=== PATIENT | male | born 1960 | race Caucasian/White ===

== ENCOUNTER → 2022-09-23 13:36 | Outpatient (BNVA) | payer OTHER, SELFPAY | PROVIDERS: Visit Provider Internal Medicine Cardiovascular Disease | DX: I20.8 Other forms of angina pectoris (principal) | CPT/HCPCS: 93005 ==

== ENCOUNTER → 2022-09-24 09:16 | Outpatient (REF) | payer OTHER, SELFPAY ==
--- NOTE | 2022-09-24 07:57 | CA_ITS ---
Acquisition Time: 2022-09-24 08:01:00 Total Exercise Time: 00:04:52 Test Indications: Suspected Angina Medications: ASA ATORVASTATIN FENOFIBRATE METOPROLOL Protocol: BANDAR Max HR: 103 BPM 65% of Pred: 158 BPM Max BP: 172/060 mmHG Max Work Load: 6.8 METS Exercise stress test exercise 4 min 52 sec of Bandar protocol achieving 65% MPHR, with 7/10 chest burning, isolated PACs and PVCs, with normotensive response to exercise, with EKG changes meeting criteria for ischemia inferiorly. His chest burning and EKG changes resolved quickly in recovery. Test reviewed with Dr Harden. Plan for cardiac catherization as soon as can be scheduled. Pt informed. Risks reviewed. Instructed on light physical activity only. No work. Continue current meds which include aspirin, atorvastatin and metoprolol. Precath labs ordered on him. Allowed to leave stress lab pain free and in stable condition. Referred By: Francois Harden Overread By: KAUSHAL SANTOS
[2022-09-24 09:04] LABS: Basophils Percent Auto 0.3 % (0-2); Eosinophils Percent Auto 0.2 % (0-4); Hematocrit 39.8 % (42.0-52.0); Hemoglobin 12.4 g/dl (14.0-18.0); Imm Gran Abs Auto 0.03 X10*3/uL (0.00-0.03); Imm Gran Pct Auto 0.2 % (0.0-0.4); Lymphocytes Absolute Auto 5.8 X10*3/uL (1.2-4.9); Lymphocytes Percent Auto 42.6 % (20-40); MANUAL DIFF FLAG SCAN; Mean Corpuscular HGB Conc 31.2 g/dl (31.0-36.0); Mean Corpuscular Hemoglobin 21.7 pg (27.0-33.0); Mean Corpuscular Volume 69.6 fL (80.0-98.0); Mean Platelet Volume 9.9 fL (9.4-12.4); Monocytes Absolute Auto 0.5 X10*3/uL (0.1-1.2); Monocytes Percent Auto 3.8 % (2-11); Neutrophils Absolute Auto 7.2 x10*3/uL (2.0-8.3); Neutrophils Percent Auto 52.9 % (45-73); Platelet Count 369 X10*3/uL (160-400); Red Blood Count 5.72 X10*6/uL (4.60-5.80); Red Cell Distribution Width 14.6 % (11.0-16.0); SCAN SMEAR FLAG 1; White Blood Count 13.7 X10*3/uL (4.8-10.8)
[2022-09-24 09:08] LABS: Prothrombin Time 11.5 SEC (10.0-13.1)
[2022-09-24 09:40] LABS: SLIDE REVIEW VERIFIED
[2022-09-24 09:47] LABS: Anion Gap 13 (12-20); Blood Urea Nitrogen 12 mg/dL (9-16); Calcium 9.9 mg/dL (8.4-10.2); Carbon Dioxide 26 mmol/L (22-29); Chloride 106 mmol/L (96-108); Estimated Glomerular Filt Rate > 60; Glucose Random 130 mg/dL (60-115); Potassium 4.3 mmol/L (3.3-5.1); Sodium 141 mmol/L (135-145)
== END ==
LOC: HO.CARD 09:16
PROVIDERS: Nurse Practitioner Family; PCP Internal Medicine; Visit Provider Internal Medicine Cardiovascular Disease
DX: Z01.810 Encounter for preprocedural cardiovascular examination (principal); I20.8 Other forms of angina pectoris; R94.39 Abnormal result of other cardiovascular function study
CPT/HCPCS: 36415; 80048; 85025; 85610; 93017

== ENCOUNTER → 2022-09-28 23:59 | Outpatient (BNV) | payer OTHER, SELFPAY | PROVIDERS: PCP Internal Medicine; Visit Provider Internal Medicine Cardiovascular Disease | DX: R93.1 Abnormal findings on diagnostic imaging of heart and coronary circulation (principal); I20.8 Other forms of angina pectoris | CPT/HCPCS: 93458; 99152 ==

== ENCOUNTER → 2022-11-03 09:52 | Outpatient (REF) | payer OTHER, SELFPAY ==
--- NOTE | 2022-11-03 10:01 | CA_ITS ---
Transthoracic Echocardiogram Patient (Last, First, Middle): Albert Tomlin, Gender: Male Date of : 1960 Age: 61 Procedure Date: 11/03/2022 Procedure Type: Transthoracic Echocardiogram Location: OP Height: 180.34 cm Weight: 85.28 kg BSA: 2.05 m2 Heart Rate: bpm BP: 130 / 76 mmHg Chief Medical Director: TO Referring MD: Francois Harden MD Symptoms: I20.8 - Other forms of angina pectoris Study Quality: Fair/contrast ECG Rhythm: Sinus Conclusions: - The left ventricular systolic function is normal. The visually estimated ejection fraction is between 65-70%. - No obvious valvular pathology seen on this study. - Small pericardial effusion posterior left ventricle. Over the right atrium, moderate in size. Findings Procedure Information Contrast agent, definity, is being given per protocol without apparent complications. Left Ventricle Normal left ventricular cavity size. There is normal left ventricular wall thickness. The left ventricular systolic function is normal. The visually estimated ejection fraction is between 65-70%. There is no evidence of regional wall motion abnormalities. Diastolic function is normal for age. Right Ventricle Mildly increased right ventricular cavity size. There is normal right ventricular systolic function. Aortic Valve There is a normal trileaflet aortic valve. There is no aortic valve stenosis. There is no aortic valve regurgitation. Mitral Valve The mitral valve appears normal. There is trace mitral valve regurgitation. There is no mitral valve stenosis. Pulmonic Valve There is trace to mild pulmonic valve regurgitation. Tricuspid Valve Normal tricuspid valve structure. There is trace tricuspid valve regurgitation. There is no evidence of pulmonary hypertension. Great Vessels The asc aorta is normal in size. Venous The inferior vena cava is normal in size and collapses greater than 50% with inspiration. Pericardium/Pleural There are no definitive echocardiographic findings of tamponade physiology. Small pericardial effusion posterior left ventricle. Over the right atrium, moderate in size. Prior Study Comparison No prior study available for comparison. Recommendations, Care & Conclusions No obvious valvular pathology seen on this study. Measurements 2D Linear Measurements IVSd: 0.97 0.6-0.9/0.6-1.0 cm LVIDd: 5.40 3.9-5.3/4.2-5.9 cm LVIDd Index: 2.63 2.4-3.2/2.2-3.1 cm/m2 LVIDs: 3.25 2.0-3.6 cm LVPWd: 0.81 0.7-1.1 cm LA Diam: 4.10 2.7-3.8/3.0-4.0 cm LAIDs Index: 2.00 1.5-2.3 cm/m2 LV Mass: 221.03 67-162/88-224 g LV Mass Index: 107.82 43-95/49-115 g/m2 LVOT Diam: 2.60 3.0+(-)1.3 cm 2D Systolic Function EF 4C: 59.20 >55% EF 2C: 65.60 >55% EF BiP: 62.50 >55% Mitral Valve MV Pk E: 0.91 MV PK A: 0.35 MV Decel Time: 274.00 E/A: 2.60 E'Lateral: 14.80 E'Medial: 9.36 E/E' Med: 9.70 E/E' Lat: 6.10 PHT: 80.00 MVA PHT: 2.75 Decel [place]: 3.31 Aortic Valve AoV Pk [place]: 1.38 AoV Mn [place]: 0.84 AoV VTI: 0.29 AoV Pk Grad: 8.00 Aov Mn Grad: 3.00 MARCIA Cont.VTI: 5.44 LVOT LVOT Pk [place]: 1.36 LVOT Mn [place]: 0.81 LVOT VTI: 0.29 LVOT Pk Grad: 7.00 LVOT Mn Grad: 3.00 LVOT Diam: 2.60 LVOT Area: 5.31 Diastolic Function MV Pk E: 0.91 MV Pk A: 0.35 E/A: 2.60 E'Medial: 9.36 E/E' Med: 9.70 E' Laterial: 14.80 E/E' Lat: 6.10 Right Ventricle TAPSE (mm): 16.80 TVS' [place]: 13.40 Tricuspid Valve TR Pk [place]: 2.20 TR Pk Grad: 19.00 RA Press: 3.00 RVSP: 22.00 Great Vessels Aorta Ao Asc: 3.70 2.1-3.4 cm Updated in Other Vendor System with Status of Final Matthew Ordonez MD electronically signed on 11/04/2022 11:40:31 AM with status of Final
== END ==
LOC: HO.CARD 09:52
PROVIDERS: Visit Provider Internal Medicine Cardiovascular Disease
DX: I20.8 Other forms of angina pectoris (principal)
CPT/HCPCS: 93306; Q9957

== ENCOUNTER → 2022-11-03 10:01 | Outpatient (BNV) | payer OTHER, SELFPAY | PROVIDERS: Visit Provider Internal Medicine | DX: I31.39 Other pericardial effusion (noninflammatory) (principal) | CPT/HCPCS: 93306 ==

== ENCOUNTER → 2022-11-06 11:11 | Outpatient (REF) | payer OTHER, SELFPAY ==
--- NOTE | 2022-11-06 11:23 | HM_ITS ---
Conclusion: 1. Patient was monitored for total period of 2 days and 21 hours 2. Baseline was normal sinus rhythm with average heart of 61 beats per minute 3. No significant pauses noted 4. No atrial fibrillation noted 5. Rare PACs noted 6. No patient reported events MTDD
== END ==
LOC: HO.CARD 11:11
PROVIDERS: Visit Provider Internal Medicine Cardiovascular Disease
DX: I20.8 Other forms of angina pectoris (principal)
CPT/HCPCS: 93242

== ENCOUNTER → 2022-11-06 11:23 | Outpatient (BNV) | payer OTHER, SELFPAY | PROVIDERS: Visit Provider Internal Medicine Cardiovascular Disease | DX: I49.1 Atrial premature depolarization (principal) | CPT/HCPCS: 93244 ==

== ENCOUNTER 2022-11-16 13:43 | Outpatient (AMB) | payer OTHER, SELFPAY ==
[2022-11-16 13:59] VITALS: BP 130/72; PULSE 60; O2SAT 98; BMI 26.4
--- NOTE | 2022-11-16 13:59 | MHC.OFFVIS ---
Intake Vital Signs 11/16/22 13:59 Height 6 ft Weight 194 lb 14.218 oz BMI 26.4 BP 130/72 Blood Pressure Location Lt brachial Position Sitting Pulse 60 Pulse Source Pulse Oximeter Pulse Oximetry (%) 98 Oxygen Delivery Method Room Air Intake Visit Reasons: Follow up Allergies No Known Allergies Allergy (Verified 11/16/22 14:02) Medication List - Last Reconciled 11/16/22 by Rebeka Tse, AIR CONDITIONING SERVICE TECHNICIAN-C amiodarone 200 mg PO DAILY aspirin 81 mg PO BEDTIME atorvastatin 80 mg PO DAILY clopidogrel 75 mg PO DAILY fenofibrate 160 mg PO DAILY metoprolol succinate ER 25 mg PO QAM 30 days pantoprazole 40 mg PO DAILY HPI Follow up HPI Details Albert is a 62-year-old male with past medical history of hyperlipidemia, elevated calcium score, angina who underwent further cardiac testing and found to have significant coronary artery disease leading to 3 vessel coronary artery bypass grafting. He now presents for follow-up. Today he reports he has been doing very well since his hospital discharge. He tells me he has been back to work for a few weeks. 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 He does not do any heavy lifting. No chest discomfort or chest wall soreness reported. No shortness of breath, palpitations, dizziness, presyncope, syncope, PND, orthopnea or edema. He is not interested in cardiac rehab. [facility] Surgical History (Updated 11/16/22 @ 16:20 by Rebeka Tse, AIR CONDITIONING SERVICE TECHNICIAN-C) Hx of knee surgery S/P CABG x 3 S/P cardiac catheterization Family History Father CAD (coronary artery disease) Mother No problems noted. Sister CAD (coronary artery disease) Review of Systems Const All systems reviewed & are unremarkable except as noted in HPI and below Card Reports no additional complaints Resp Reports no additional complaints Physical Exam Vital Signs: Last Vital Signs Pulse 60 11/16/22 13:59 BP 130/72 11/16/22 13:59 Pulse Ox 98 11/16/22 13:59 Oxygen Delivery Method Room Air 11/16/22 13:59 BMI result Body Mass Index 26.4 Const General: cooperative, healthy appearing, comfortable and no acute distress Orientation/consciousness: patient oriented x3 Neck Neck: Yes normal visual inspection Chest Other: Sternal incision fully intact, drain sites well healed, no signs of infection, nontender anterior chest wall Resp Effort & Inspection: normal respiratory effort Auscultation: clear to auscultation bilaterally, no crackles, no rales, no rhonchi and no wheezes Cardio Jugular venous distension: no JVD Rate: regular rate Rhythm: regular rhythm Heart sounds: S1 normal heart sound present, S2 normal heart sound present, no murmurs and no rubs Neuro General: patient oriented x3 Extrem General: Yes normal to inspection and No no pedal edema Psych Appearance: grossly normal Mental Status: mental status grossly normal Speech and movement: Normal speech and movement present Office Procedures EKG Details: Today, read by me, sinus bradycardia, possible left atrial enlargement, T-wave inversion V2 through V4, different from last EKG at [facility], rate 58, QTC 455 milliseconds [id number], Complete Assessment & Plan Assessment & Plan (1) CAD (coronary artery disease): Code(s): I25.10 - Atherosclerotic heart disease of [place] coronary artery without angina pectoris Plan: Cardiology consult last visit in August for elevated calcium score predominantly in the LAD territory. Known history of hyperlipidemia. At that time he reported atypical anginal symptoms. He then underwent a exercise stress test on 09/24/2022 with exercise just under 5 minutes reaching 65% mph are with need to stop due to 710 anterior chest burning with positive EKG changes. He was scheduled for a cardiac catheterization done on 09/28/2022 showing left main 80% stenosis, proximal LAD 99% stenosis, left circumflex 40% stenosis, distal RCA 70% stenosis. He was kept inpatient for a coronary artery bypass grafting done on 09/30/2022 with HERMAN to LAD, right radial graft to OM and SVG to PDA. There is documentation of AFib RVR in his postop period. He was put on amiodarone for 3 weeks which he has since completed. He is not on anticoagulation with the exception of aspirin and clopidogrel. He continues on high-dose atorvastatin and metoprolol. Today he states he is feeling very well with no concerning symptoms. He has been back to work for 2-3 weeks. He denies any heavy lifting and doing only light physical activities. Instructed on no heavy lifting greater than 20 lb for an additional 6 weeks and echocardiogram was done on 11/03/2022 showing EF 65-70%, no regional wall motion abnormalities, small pericardial effusion. EKG done today showing T-wave inversions V2 through V4 which appear different than EKG done postoperatively at [facility]. Reviewed with Dr. Harden. Will have him start in cardiac rehab. He initially states he does not want cardiac rehab however with EKG abnormality he is willing to attend. He tells me he already has an order and is going to attend at a place closer to his home. Signs and symptoms of angina reviewed. Cardiology office visit in 2-3 months, sooner if needed. (2) S/P cardiac catheterization: Comment: 09/28/2022, left main 80% stenosis, proximal LAD 99% stenosis, left circumflex 40% stenosis, distal RCA 70% stenosis Code(s): Z98.890 - Other specified postprocedural states (3) S/P CABG x 3: Comment: 04/02/2022, herman to LAD, right radial artery to OM, SVG to PDA Code(s): Z95.1 - Presence of aortocoronary bypass graft (4) Hyperlipidemia: Code(s): E78.5 - Hyperlipidemia, unspecified Plan: [place] LDL goal less than 70. Continue high-dose atorvastatin. Plan for fasting lipids at time of next visit. (5) Abnormal EKG: Code(s): R94.31 - Abnormal electrocardiogram [ECG] [EKG] Plan: T-wave inversions noted on EKG today. Asymptomatic Coding Level of Care Code Est Pt Level 4 (61732) Diagnoses CAD (coronary artery disease) I25.10 S/P cardiac catheterization Z98.890 S/P CABG x 3 Z95.1 Hyperlipidemia E78.5 Abnormal EKG R94.31 CPT Codes EKG - CPT: 66468-[id number], Complete ([id number]) Time Spent (min) 28 Comment Chart review, documentation, interview, assess
== END 2022-11-16 14:52 | disposition home or self-care (01) ==
PROVIDERS: PCP Internal Medicine; Referring Provider Internal Medicine; Visit Provider Nurse Practitioner Family
DX: I25.10 Atherosclerotic heart disease of native coronary artery without angina pectoris (principal); Z98.890 Other specified postprocedural states; Z95.1 Presence of aortocoronary bypass graft; E78.5 Hyperlipidemia, unspecified; R94.31 Abnormal electrocardiogram [ECG] [EKG]
CPT/HCPCS: 93010; 99214

== ENCOUNTER → 2022-11-16 13:43 | Outpatient (BNVA) | payer OTHER, SELFPAY | PROVIDERS: PCP Internal Medicine; Referring Provider Internal Medicine; Visit Provider Nurse Practitioner Family | DX: I25.10 Atherosclerotic heart disease of native coronary artery without angina pectoris (principal); R94.31 Abnormal electrocardiogram [ECG] [EKG]; E78.5 Hyperlipidemia, unspecified; Z79.899 Other long term (current) drug therapy; Z95.1 Presence of aortocoronary bypass graft | CPT/HCPCS: 93005 ==

== ENCOUNTER 2023-01-26 14:52 | Outpatient (AMB) | payer OTHER, SELFPAY ==
[2023-01-26 14:55] VITALS: BP 130/82; PULSE 72; O2SAT 96; BMI 27.3
--- NOTE | 2023-01-26 14:55 | MHC.OFFVIS ---
Intake Vital Signs 01/26/23 14:55 Height 6 ft Weight 201 lb 0.985 oz BMI 27.3 BP 130/82 Blood Pressure Location Lt brachial Position Sitting Pulse 72 Pulse Source Pulse Oximeter Pulse Oximetry (%) 96 Oxygen Delivery Method Room Air Intake Visit Reasons: 3 mth f/up Intake Note: Pt presents to the office today for a 3 month follow up. Pt states he is overall feeling well. Pt states he has no concerns at this time. Allergies No Known Allergies Allergy (Verified 01/26/23 14:57) Medication List - Last Reconciled 01/26/23 by Rebeka Tse, COMPUTING SYSTEMS MECHANIC-C aspirin 81 mg PO BEDTIME atorvastatin 80 mg PO DAILY clopidogrel 75 mg PO DAILY fenofibrate 160 mg PO DAILY metoprolol succinate ER 25 mg PO QAM 90 days pantoprazole 40 mg PO DAILY HPI 3 mth f/up HPI Details Albert is a 62-year-old male with past medical history of hyperlipidemia, elevated calcium score, angina who underwent further cardiac testing and found to have significant coronary artery disease leading to 3 vessel coronary artery bypass grafting. He now presents for follow-up. Today he states he is feeling very well. He denies any chest wall discomfort. He has no other chest pains or pressure at rest or with activity. No shortness of breath, palpitations, presyncope, syncope, PND, orthopnea or edema. Taking all meds. 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 Has been avoiding the heavy lifting. Does not have cardiac rehab appointment until 02/12/23. [facility] Surgical History S/P CABG x 3 S/P cardiac catheterization Hx of knee surgery Family History Father CAD (coronary artery disease) Mother No problems noted. Sister CAD (coronary artery disease) Social History Household Members: Spouse Housing: House Alcohol intake: current Alcohol intake frequency: a few times a week Patient Tobacco Use Status: Never used Tobacco Review of Systems Const All systems reviewed & are unremarkable except as noted in HPI and below Physical Exam Vital Signs: Last Vital Signs Pulse 72 01/26/23 14:55 BP 130/82 01/26/23 14:55 Pulse Ox 96 01/26/23 14:55 Oxygen Delivery Method Room Air 01/26/23 14:55 BMI result Body Mass Index 27.3 Const General: cooperative, healthy appearing, comfortable and no acute distress Orientation/consciousness: patient oriented x3 Neck Neck: Yes normal visual inspection Resp Effort & Inspection: normal respiratory effort Auscultation: clear to auscultation bilaterally, no crackles, no rales, no rhonchi and no wheezes Cardio Jugular venous distension: no JVD Rate: regular rate Rhythm: regular rhythm Heart sounds: S1 normal heart sound present, S2 normal heart sound present, no murmurs and no rubs Neuro General: patient oriented x3 Extrem General: Yes normal to inspection Psych Appearance: grossly normal Mental Status: mental status grossly normal Speech and movement: Normal speech and movement present Assessment & Plan Assessment & Plan (1) CAD (coronary artery disease): Code(s): I25.10 - Atherosclerotic heart disease of [place] coronary artery without angina pectoris Qualifiers: Coronary Disease-Associated Artery/Lesion type: [place] artery [place] vs. transplanted heart: [place] heart Associated angina: without angina Qualified Code(s): I25.10 - Atherosclerotic heart disease of [place] coronary artery without angina pectoris Plan: Cardiology consult last visit in August for elevated calcium score predominantly in the LAD territory. Known history of hyperlipidemia. At that time he reported atypical anginal symptoms. He then underwent a exercise stress test on 09/24/2022 with exercise just under 5 minutes reaching 65% mph are with need to stop due to 7/10 anterior chest burning with positive EKG changes. He was scheduled for a cardiac catheterization done on 09/28/2022 showing left main 80% stenosis, proximal LAD 99% stenosis, left circumflex 40% stenosis, distal RCA 70% stenosis. He was kept inpatient for a coronary artery bypass grafting done on 09/30/2022 with HERMAN to LAD, right radial graft to OM and SVG to PDA. There is documentation of AFib RVR in his postop period. He was put on amiodarone for 3 weeks which he has since completed. He is not on anticoagulation with the exception of aspirin and clopidogrel. He continues on high-dose atorvastatin and metoprolol. Today he states he is feeling very well with no concerning symptoms. 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 Echocardiogram was done on 11/03/2022 showing EF 65-70%, no regional wall motion abnormalities, small pericardial effusion. Starting cardiac rehab in 2 weeks. Plans to only go to 1 or 2 sessions. Continue med management including Aspirin indefinetly. Plavix, high dose atorvastatin, Metoprolol. Need for each medication reviewed. Signs and symptoms of angina reviewed. Cardiology office visit in 2-3 months, sooner if needed. (2) S/P cardiac catheterization: Comment: 09/28/2022, left main 80% stenosis, proximal LAD 99% stenosis, left circumflex 40% stenosis, distal RCA 70% stenosis Code(s): Z98.890 - Other specified postprocedural states (3) S/P CABG x 3: Comment: 04/02/2022, herman to LAD, right radial artery to OM, SVG to PDA Code(s): Z95.1 - Presence of aortocoronary bypass graft (4) Hyperlipidemia: Code(s): E78.5 - Hyperlipidemia, unspecified Plan: [place] LDL goal less than 70. Continue high-dose atorvastatin. He tells me that PCP will be doing lipid profile in near future. (5) Abnormal EKG: Code(s): R94.31 - Abnormal electrocardiogram [ECG] [EKG] Plan: T-wave inversions noted on EKG last visit. Asymptomatic Coding Level of Care Code Est Pt Level 4 (58735) Diagnoses Coronary artery disease involving [place] coronary artery of [place] heart without angina pectoris I25.10 Coronary Disease-Associated Artery/Lesion type: [place] artery [place] vs. transplanted heart: [place] heart Associated angina: without angina S/P cardiac catheterization Z98.890 S/P CABG x 3 Z95.1 Hyperlipidemia E78.5 Abnormal EKG R94.31 Time Spent (min) 26
== END 2023-01-26 15:23 | disposition home or self-care (01) ==
PROVIDERS: PCP Internal Medicine; Visit Provider Nurse Practitioner Family
DX: I25.10 Atherosclerotic heart disease of native coronary artery without angina pectoris (principal); Z98.890 Other specified postprocedural states; Z95.1 Presence of aortocoronary bypass graft; E78.5 Hyperlipidemia, unspecified; R94.31 Abnormal electrocardiogram [ECG] [EKG]
CPT/HCPCS: 99214

== ENCOUNTER → 2023-01-26 14:52 | Outpatient (BNVA) | payer OTHER, SELFPAY | PROVIDERS: PCP Internal Medicine; Visit Provider Nurse Practitioner Family ==

== ENCOUNTER 2023-03-23 15:15 | Outpatient (AMB) | payer OTHER, SELFPAY ==
[2023-03-23 15:16] VITALS: BP 130/82; PULSE 69; BMI 27.6
--- NOTE | 2023-03-23 15:16 | A.OFFVIS_ITS ---
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 Allergies No Known Allergies Allergy (Verified 03/23/23 15:18) Medication List - Last Reconciled 03/23/23 by Rebeka Tse, GIBRAN-C aspirin 81 mg PO BEDTIME atorvastatin 80 mg PO DAILY clopidogrel 75 mg PO DAILY fenofibrate 160 mg PO DAILY metoprolol succinate ER 25 mg PO QAM 90 days pantoprazole 40 mg PO DAILY sildenafil 100 mg PO DAILY HPI 3 month f/up HPI Details Albert is a 62-year-old male with past medical history of hyperlipidemia, elevated calcium score, angina who underwent further cardiac testing and found to have significant coronary artery disease leading to 3 vessel coronary artery bypass grafting last September. He now presents for follow- up. Today he reports he has been doing very well with no concerning symptoms. He denies any chest wall discomfort. He has no exertional chest discomfort, no shortness of breath. He denies palpitations, presyncope, syncope, PND, orthopnea or edema. He is taking all meds as directed. He is questioning how he could have developed heart disease when he has been treating his cholesterol since a young age. He does report family history of CAD and sister with history of Coronary artery bypass grafting. He did not start cardiac rehab as it does not go with his work schedule. Taking all meds as directed. [facility] Surgical History S/P CABG x 3 S/P cardiac catheterization Hx of knee surgery Family History Father CAD (coronary artery disease) Mother No problems noted. Sister CAD (coronary artery disease) Social History Household Members: Spouse Housing: House Alcohol intake: current Alcohol intake frequency: a few times a week Patient Tobacco Use Status: Never used Tobacco Review of Systems Const All systems reviewed & are unremarkable except as noted in HPI and below ENT Denies dizziness Card Denies chest pain, Denies chest pain at rest, Denies chest pain with activity, Denies rapid heart rate, Denies pedal edema, Denies edema, Denies leg edema, Denies lightheadedness, Denies palpitations, Denies dyspnea, Denies dyspnea on exertion and Denies orthopnea Resp Denies cough, Denies dyspnea and Denies dyspnea on exertion GI Denies hematochezia and Denies change in stool character Musc Denies abnormal gait, Denies limited range of motion, Denies muscle cramps, Denies muscle weakness, Denies numbness, Denies radiating pain into limb, Denies stiffness and Denies tingling Neuro Denies abnormal gait, Denies dizziness, Denies numbness and Denies tingling Endo Denies palpitations Physical Exam Vital Signs: Last Vital Signs Pulse 69 03/23/23 15:16 BP 130/82 03/23/23 15:16 BMI result Body Mass Index 27.6 Const General: cooperative, healthy appearing, comfortable and no acute distress Orientation/consciousness: patient oriented x3 Neck Neck: Yes normal visual inspection Resp Effort & Inspection: normal respiratory effort Auscultation: clear to auscultation bilaterally, no crackles, no rales, no rhonchi and no wheezes Cardio Jugular venous distension: no JVD Rate: regular rate Rhythm: regular rhythm Heart sounds: S1 normal heart sound present, S2 normal heart sound present, no murmurs and no rubs Skin General skin exam: no rashes or lesions noted Neuro General: patient oriented x3 Extrem General: Yes normal to inspection, No no pedal edema and No calf tenderness Psych Appearance: grossly normal Mental Status: mental status grossly normal Speech and movement: Normal speech and movement present Assessment & Plan Assessment & Plan (1) CAD (coronary artery disease): Code(s): I25.10 - Atherosclerotic heart disease of [place] coronary artery without angina pectoris Qualifiers: Associated angina: without angina Coronary Disease-Associated Artery/Lesion type: [place] artery [place] vs. transplanted heart: [place] heart Qualified Code(s): I25.10 - Atherosclerotic heart disease of [place] coronary artery without angina pectoris Plan: Cardiology consult last visit in August for elevated calcium score predominantly in the LAD territory. Known history of hyperlipidemia. At that time he reported atypical anginal symptoms. He then underwent a exercise stress test on 09/24/2022 with exercise just under 5 minutes reaching 65% mph are with need to stop due to 7/10 anterior chest burning with positive EKG changes. He was scheduled for a cardiac catheterization done on 09/28/2022 showing left main 80% stenosis, proximal LAD 99% stenosis, left circumflex 40% stenosis, distal RCA 70% stenosis. He was kept inpatient for a coronary artery bypass grafting done on 09/30/2022 with HERMAN to LAD, right radial graft to OM and SVG to PDA. There is documentation of AFib RVR in his postop period. He was put on amiodarone for 3 weeks which he has since completed. He is not on anticoagulation with the exce ption of aspirin and clopidogrel. He continues on high-dose atorvastatin and metoprolol. Today he states he is feeling very well with no concerning symptoms. 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 Echocardiogram was done on 11/03/2022 showing EF 65-70%, no regional wall motion abnormalities, small pericardial effusion. He did not start cardiac rehab due to his work schedule. Continue med management including Aspirin indefinitely. Plavix, high dose atorvastatin with ideal LDL goal less than 70, Metoprolol. Need for each medication reviewed. He reports having lipid profile done by his PCP not long ago. Will work on obtaining those results Signs and symptoms of angina reviewed. Cardiology office visit in 6 months, sooner if needed. (2) S/P cardiac catheterization: Comment: 09/28/2022, left main 80% stenosis, proximal LAD 99% stenosis, left circumflex 40% stenosis, distal RCA 70% stenosis Code(s): Z98.890 - Other specified postprocedural states Plan: As above (3) S/P CABG x 3: Comment: 04/02/2022, herman to LAD, right radial artery to OM, SVG to PDA Code(s): Z95.1 - Presence of aortocoronary bypass graft Plan: As above (4) Hyperlipidemia: Code(s): E78.5 - Hyperlipidemia, unspecified Plan: [place] LDL goal less than 70. Continue high-dose atorvastatin. (5) Abnormal EKG: Code(s): R94.31 - Abnormal electrocardiogram [ECG] [EKG] Plan: T-wave inversions noted on EKG 11/16/22 Asymptomatic. Echo in October shows normal EF and no wall motion abnormality Plan Time spent on chart review, documentation, interview and assessment Coding Level of Care Code Est Pt Level 4 (53960) Diagnoses Coronary artery disease involving [place] coronary artery of [place] heart without angina pectoris I25.10 Associated angina: without angina Coronary Disease-Associated Artery/Lesion type: [place] artery [place] vs. transplanted heart: [place] heart S/P cardiac catheterization Z98.890 S/P CABG x 3 Z95.1 Hyperlipidemia E78.5 Abnormal EKG R94.31 Time Spent (min) 28
== END 2023-03-23 15:45 | disposition home or self-care (01) ==
PROVIDERS: PCP Internal Medicine; Visit Provider Nurse Practitioner Family
DX: I25.10 Atherosclerotic heart disease of native coronary artery without angina pectoris (principal); Z98.890 Other specified postprocedural states; Z95.1 Presence of aortocoronary bypass graft; E78.5 Hyperlipidemia, unspecified; R94.31 Abnormal electrocardiogram [ECG] [EKG]
CPT/HCPCS: 99214

== ENCOUNTER → 2023-03-23 15:15 | Outpatient (BNVA) | payer OTHER, SELFPAY | PROVIDERS: PCP Internal Medicine; Visit Provider Nurse Practitioner Family ==

== ENCOUNTER 2023-10-04 15:39 | Outpatient (AMB) | payer OTHER, SELFPAY ==
[2023-10-04 15:42] VITALS: BP 120/60; PULSE 61; BMI 28.4
--- NOTE | 2023-10-04 15:42 | MHC.OFFVIS ---
Vital Signs 10/04/23 15:42 Height 6 ft Weight 209 lb 7.026 oz BMI 28.4 BP 120/60 Blood Pressure Location Lt brachial Position Sitting Pulse 61 Pulse Source Monitor Intake Visit Reasons: 6 month follow up Intake Note: PT IS HERE FOR 6 MONTH FOLLOW UP WITH EKG PT IS DOING GOOD Allergies No Known Allergies Allergy (Verified 03/23/23 15:18) Medication List - Last Reconciled 10/04/23 by Francois Harden MD aspirin 81 mg PO BEDTIME atorvastatin 80 mg PO DAILY clopidogrel 75 mg PO DAILY fenofibrate 160 mg PO DAILY metoprolol succinate ER 25 mg PO QAM 90 days pantoprazole 40 mg PO DAILY sildenafil 100 mg PO DAILY HPI Comments Details: Albert comes for follow-up. He has been doing well from cardiac perspective. Since last seen in the office he has not had any lipid panel. He however denies his symptoms of atypical angina that he had led to open-heart surgery. He takes all his medications religiously including dual antiplatelet therapy. He denies any other cardiac symptoms. No lightheadedness, syncope. No prolonged palpitations, irregular heartbeat. No heart failure symptoms. No bleeding issues. He remains active. Complains of intermittent chest soreness. [facility] Surgical History S/P CABG x 3 S/P cardiac catheterization Hx of knee surgery Family History Father CAD (coronary artery disease) Mother No problems noted. Sister CAD (coronary artery disease) Social History Household Members: Spouse Housing: House Alcohol intake: current Alcohol intake frequency: a few times a week Patient Tobacco Use Status: Never used Tobacco Review of Systems Const Denies weakness ENT Denies dizziness Card Denies chest pain, Denies chest pain with activity, Denies syncope, Denies rapid heart rate, Denies pedal edema, Denies edema, Denies leg edema, Denies lightheadedness, Denies palpitations, Denies dyspnea, Denies dyspnea on exertion and Denies orthopnea Resp Denies cough, Denies dyspnea and Denies dyspnea on exertion GI Denies hematochezia and Denies change in stool character Musc Denies abnormal gait, Denies muscle cramps, Denies muscle weakness, Denies numbness, Denies radiating pain into limb and Denies tingling Neuro Denies abnormal gait, Denies dizziness, Denies syncope, Denies numbness, Denies tingling and Denies weakness Endo Denies palpitations Physical Exam Vital Signs: Last Vital Signs Pulse 61 10/04/23 15:42 BP 120/60 10/04/23 15:42 BMI result Body Mass Index 28.4 Const General: cooperative, healthy appearing, comfortable and no acute distress Orientation/consciousness: patient oriented x3 Neck Neck: Yes normal visual inspection Resp Effort & Inspection: normal respiratory effort Auscultation: clear to auscultation bilaterally, no crackles, no rales, no rhonchi and no wheezes Cardio Jugular venous distension: no JVD Rate: regular rate Rhythm: regular rhythm Heart sounds: S1 normal heart sound present, S2 normal heart sound present, no murmurs and no rubs Skin General skin exam: no rashes or lesions noted Neuro General: patient oriented x3 Extrem General: Yes normal to inspection, No no pedal edema and No calf tenderness Psych Appearance: grossly normal Mental Status: mental status grossly normal Speech and movement: Normal speech and movement present Office Procedures EKG Details: EKG shows normal sinus rhythm normal EKG. [id number], Complete Assessment & Plan Assessment & Plan (1) CAD (coronary artery disease): Code(s): I25.10 - Atherosclerotic heart disease of [place] coronary artery without angina pectoris Category: Medical Qualifiers: Coronary Disease-Associated Artery/Lesion type: [place] artery [place] vs. transplanted heart: [place] heart Associated angina: without angina Qualified Code(s): I25.10 - Atherosclerotic heart disease of [place] coronary artery without angina pectoris Plan: CAD, premature atherosclerosis in this middle-aged man with strong family history for premature coronary artery disease with prior history of hyperlipidemia. He is status post surgical revascularization with significantly improved symptoms of atypical angina at this point time. He is currently on dual antiplatelet therapy which is not required and can be switched to just baby aspirin therapy at this point time. Plavix to be discontinued. This was discussed with him. I had a very detailed discussion about pathophysiology of coronary atherosclerosis and role of lipids in causing atherosclerosis. I discussed various scientific data. At this point time advised him to continue high-intensity statin therapy which she had his doubts about as well as fenofibrate therapy. Very important to obtain lipid panel in near future and further guide therapy to reduce future cardiovascular events including revascularization. This was discussed with him in details. Understands agrees. Advised to continue maintain dietary modification as well as active lifestyle. Follow up in the clinic in 1 year's time, sooner p.r.n.. Thank you for allowing me to partake in his care Orders: Orders Lipid Panel Today I25.10 - Atherosclerotic heart disease of [place] coronary artery without angina pectoris Medications: Discontinued clopidogrel Discontinued Reason: Doctor's Order 75 mg PO DAILY 30 tabs 5RF Coding Level of Care Code Est Pt Level 4 (05753) Diagnoses Coronary artery disease involving [place] coronary artery of [place] heart without angina pectoris I25.10 Coronary Disease-Associated Artery/Lesion type: [place] artery [place] vs. transplanted heart: [place] heart Associated angina: without angina CPT Codes EKG - CPT: 16080-[id number], Complete ([id number])
== END 2023-10-04 16:08 | disposition home or self-care (01) ==
PROVIDERS: PCP Internal Medicine; Visit Provider Internal Medicine Cardiovascular Disease
DX: I25.10 Atherosclerotic heart disease of native coronary artery without angina pectoris (principal)
CPT/HCPCS: 93010; 99214

== ENCOUNTER → 2023-10-04 15:39 | Outpatient (BNVA) | payer OTHER, SELFPAY | PROVIDERS: PCP Internal Medicine; Visit Provider Internal Medicine Cardiovascular Disease | DX: I25.10 Atherosclerotic heart disease of native coronary artery without angina pectoris (principal); Z79.899 Other long term (current) drug therapy | CPT/HCPCS: 93005 ==

== ENCOUNTER 2024-10-05 15:04 | Outpatient (AMB) | payer OTHER, SELFPAY ==
--- OUTSIDE RECORDS SUMMARY | 2024-10-05 15:06 | XMS_ITS | Clinical Summary ---
Author Organization [facility] Address [address] [place] [address] Care Team Providers Care All Terrain Vehicle Technician Name Role Phone Tawanda Oropeza MD Primary Care Provider [phone] Allergies Active Allergy Reactions Criticality Noted Date Comments Nka Low 02/19/2015 Medications Medication Sig Dispensed Refills Start Date End Date Status atorvastatin (LIPITOR) tablet 10 mg Take 10 mg by mouth every evening. 0 10/20/2016 Active metoprolol succinate (TOPROL-XL) 24 hr tablet 50 mg Take 50 mg by mouth every evening. 0 03/07/2020 Active fenofibrate (TRIGLIDE) 160 MG tablet Take 1 tablet by mouth every evening. 0 01/16/2020 Active acetaminophen (TYLENOL EXTRA STRENGTH) 500 MG tablet Take 1,000 mg by mouth every 6 (six) hours as needed. 0 Active tadalafil (CIALIS) 20 MG tablet Take 1 tablet (20 mg total) by mouth daily as needed for erectile dysfunction. 18 tablet 3 02/17/2022 Active Active Problems Problem Noted Date Diagnosed Date Pneumonia due to COVID-19 virus 03/20/2021 Osteoarthritis 04/22/2020 Erectile dysfunction following radical prostatec [place] 04/29/2017 Sparks's cyst 12/04/2016 Prostate cancer 03/07/2015 Sparks's cyst of knee 02/19/2015 Primary osteoarthritis of right knee 02/19/2015 Family History Medical History Relation Name Comments Heart disease Brother 1 ND Heart disease Brother 2 ND Diabetes Father Heart disease Father ND Hyperlipidemia Father Hypertension Father Hypertension Mother Stroke Mother Relation Name Status Comments Brother 1 (Age 44) Brother 2 (Age 45) Father (Age 67) Mother Alive Social History Tobacco Use Types Packs/Day Years Used Date Smoking Tobacco: Former Cigarettes 0.5 5 Q uit: 03/07/2005 Smokeless Tobacco: Never Tobacco Cessation:Counseling Given: Not Answered Alcohol Use Standard Drinks/Week Comments Yes 7 (1 standard drink = 0.6 oz pur e alcohol) Sex and Gender Information Value Date Recorded Sex Assigned at Male 03/21/2020 10:19 AM EST Gender Identity Male 03/21/2020 10:19 AM EST Sexual Orientation Not on file Job Start Date Occupation Industry Not on file Not on file Not on file Last Filed Vital Signs Vital Sign Reading Time Taken Comments Blood Pressure 131/82 02/17/2022 11:44 AM EST Pulse 82 02/17/2022 11:44 AM EST Temperature 36.2 C (97.1 F) 09/02/2021 2:34 PM EDT Respiratory Rate 17 09/02/2021 2:34 PM EDT Oxygen Saturation 100% 09/02/2021 2:34 PM EDT Inhaled Oxygen Concentration - - Weight 91.6 kg (202 lb) 02/17/2022 11:44 AM EST Height 182.9 cm (6') 09/02/2021 2:34 PM EDT Body Mass Index 27.4 09/02/2021 2:34 PM EDT Plan of Treatment Health Maintenance Due Date Last Done Comments Hepatitis C Screening 1960 COVID-19 Vaccine (#1) 11/05/1964 Pneumococcal Vaccine (1 of 2 - PCV) 11/05/1965 Pneumococcal Vaccine (1 of 2 - PCV) 11/05/1965 Depression Screening 1971 Preventative Health Evaluation 11/05/1977 DTap / Tdap / Td (1 - Tdap) 11/05/1978 Shingrix-Zoster Vaccine (1 o f 2) 11/05/1978 Colon Cancer Screening (Colonoscopy) 11/05/2004 BMI Counseling 03/09/2024 03/09/2023, 02/17/2022, 03/24/2018 Influenza Vaccine (#1) 2024 RSV Adult > 60+ Yrs or (1 - 1-dose 75+ series) 11/05/2034 Hepatitis B Vaccines Aged Out No long er eligible based on patient's age to complete this topic RSV Ped < 20 months Aged Out No longe r eligible based on patient's age to complete this topic Medical Devices Implanted Type Area Coach Builder Device Identifier Shelf Expiration Date Model / Serial / Lot Insert Triathlon 10mm 5 Bearing Cndylr Stabilize Tibial - [id number] - [id number] Implanted:Qty: 1 on 04/22/2020 by Freeman Goddard MD at [facility] Right: Knee [employer] [id number] 11/25/2022 5531-P-510 / / [id number] Triathlon Tritanium Baseplate Size 5 - [id number] - [id number] Implanted:Qty: 1 on 04/22/2020 by Freeman Goddard MD at [facility] and [facility] Right: Knee [employer] [id number] 12/25/2024 5536-B-500 / / [id number] Component Femoral Cruciate Retaining Beaded Rt Size 5 W\Chrissy - [id number] - [id number] Implanted:Qty: 1 on 04/22/2020 by Freeman Goddard MD at [facility] and [facility] Right: Knee [employer] [id number] 10/01/2024 5517-F-502 / / [id number] Component 9mm 33mm Symmetric Tritanium Ptlar Knee - [id number] - [id number] Implanted:Qty: 1 on 04/22/2020 by Freeman Goddard MD at [facility] and [facility] Right: Knee [employer] [id number] 03/03/2025 5556-L-339 / / [id number] Knee Fem Bsplt W Pa Stry-How [id number]-[id number] - [id number] Implanted:Qty: 1 on 03/10/2021 by Freeman Goddard MD at [facility] and [facility] Left: Knee [employer] [id number] 12/30/2025 5517-F-501 / / [id number] Knee Bsplt Triathlon Ti Sz 5 Stry-How [id number]-[id number] 715 - [id number] Implanted:Qty: 1 on 03/10/2021 by Freeman Goddard MD at [facility] and [facility] Left: Knee [employer] [id number] 12/22/2025 5536-B-500 / / [id number] Knee Insrt Cs Tri Sz5 11mm Stry-Howm [id number] - [id number] Implanted:Qty: 1 on 03/10/2021 by Freeman Goddard MD at [facility] and [facility] Left: Knee [employer] [id number] 04/20/2025 5531-P-511 / / [id number] Knee Pat Trthln Mtl Bck 33x09 Stry-Howm [id number] 525 - [id number] Implanted:Qty: 1 on 03/10/2021 by Freeman Goddard MD at [facility] and [facility] Left: Knee [employer] [id number] 12/24/2025 5556-L-339 / / [id number] Additional Health Concerns Infection Onset Date Last Indicated COVID-19 Confirmed Comment:03/20/21: detected 03/23/2021 03/23/2021 Advance Directives For more information, please contact: [phone] Latest Code Status on File Code Status Date Activated Date Inactivated Comments Full Code 03/20/2021 10:09 PM 03/26/2021 9:00 PM Th is code status was ascertained in the following way: discussion with patient . Code Status History Code Status Date Activated Date Inactivated Comments Full Code 03/10/2021 1:25 PM 03/11/2021 8:40 PM Thi s code status was ascertained in the following way: discussion with patient . Full Code 03/10/2021 8:11 AM 03/10/2021 1:25 PM Thi s code status was ascertained in the following way: discussion with patient . Full Code 04/22/2020 10:34 AM 04/23/2020 9:49 PM This code status was ascertained in the following way: discussion with patient . Full Code 04/22/2020 5:50 AM 04/22/2020 10:34 AM This code status was ascertained in the following way: discussion with patient . Care Teams All Terrain Vehicle Technician Relationship Specialty Start Date End Date Tawanda Oropeza MD [address] [place] [address] PCP - General Internal Medicine 07/03/14
--- OUTSIDE RECORDS SUMMARY | 2024-10-05 15:06 | XMS_ITS | Clinical Summary ---
Author Organization [facility] ity Address [address] [place] [address] Care Team Providers Care Food And Beverage Intern Name Role Phone Tawanda Oropeza MD Primary Care Provider [phone] Surgical History Surgery Date Site/Laterality Comments BACK SURGERY PROCEDURE:BACK SURGERY;COMMENT:lumbar x3 PROSTATE SURGERY PROCEDURE:PROSTATE SURGERY;COMMENT:prostatectomy COLONOSCOPY PROCEDURE:COLONOSCOPY KNEE SURGERY PROCEDURE:KNEE SURGERY KNEE ARTHROSCOPY 07/04/2014 Right PROCEDURE:KNEE ARTHROSCOPY;COMMENT:Procedure: ARTHROSCOPY KNEE, Partial Medial Menisectomy; Surgeon: Sidney Paz MD; Location: [facility]; Service: Orthopedics; Laterality: Right; OTHER SURGICAL HISTORY 07/04/2014 Right PROCEDURE:POPLITEAL SYNOVIAL CYST EXCISION;COMMENT:Procedure: ASPIRATION OF BAKERS CYST; Surgeon: Sidney Paz MD; Location: [facility]; Service: Orthopedics; Laterality: Right; TOTAL KNEE ARTHROPLASTY 03/2020 Right PROCEDURE:TOTAL KNEE ARTHROPLASTY Medical History Medical History Date Comments Hyperlipidemia DX:Hyperlipidemi a GERD (gastroesophageal reflux disease) DX:GERD (gastroesophageal reflux disease);COMMENT:occas Prostate cancer ([facility] V24, [facility] V28) DX:Prostate cancer ([facility]) Osteoarthritis DX:Osteoarthriti s Hypertension DX:Hypertension Anemia DX:Anemia Family history of early CAD DX:F amily history of early CAD;COMMENT:Both brothers dying in their 40s from an [place] Prophylactic antibiotic DX:Proph ylactic antibiotic;COMMENT:prior to dental work Family History Medical History Relation Name Comments Heart disease Brother 1 [place] Heart disease Brother 2 [place] Diabetes Father Heart disease Father [place] Hyperlipidemia Father Hypertension Father Hypertension Mother Stroke Mother Relation Name Status Comments Brother 1 (Age 44) Brother 2 (Age 45) Father (Age 67) Mother Alive Social History Tobacco Use Types Packs/Day Years Used Date Smoking Tobacco: Former Cigarettes Q uit: 03/07/2005 Smokeless Tobacco: Never Alcohol Use Standard Drinks/Week Comments Yes 7 (1 standard drink = 0.6 oz pur e alcohol) Sex and Gender Information Value Date Recorded Sex Assigned at Not on file Legal Sex Male 3:18 PM EST Gender Identity Not on file Sexual Orientation Not on file Obstetrics History Last Filed Vital Signs Vital Sign Reading Time Taken Comments Blood Pressure 131/82 02/17/2022 11:44 AM EST Pulse 82 02/17/2022 11:44 AM EST Temperature - - Respiratory Rate - - Oxygen Saturation - - Inhaled Oxygen Concentration - - Weight 91.6 kg (202 lb) 02/17/2022 11:44 AM EST Height 182.9 cm (6') 09/02/2021 2:34 PM EDT Body Mass Index 27.4 09/02/2021 2:34 PM EDT Plan of Treatment Health Maintenance Due Date Last Done Comments COVID-19 Vaccine (#1) 11/05/1964 DTaP,Tdap,and Td Vaccines (1 - Tdap) 11/05/1978 Pneumococcal Vaccine: 50+ Ye ars (1 of 2 - PCV) 11/05/1978 Pneumococcal Vaccine: Pediat rics (0 to 5 Years) and At-Risk Patients (6 to 49 Years) (1 of 2 - PCV) 11/05/1978 Zoster Vaccines (1 of 2) 11/05/1978 Cholesterol Screening (Lipid Panel) 02/25/2022 Colorectal Cancer Screening: Colonoscopy 02/25/2022 Depression Screening 02/25/2022 HIV Screening 02/25/2022 Hepatitis C Screening 02/25/2022 Social Influencers of Health Screening 02/25/2022 Influenza Vaccine (#1) 2024 RSV Immunization Adult Patie nts (1 - 1-dose 75+ series) 11/05/2034 HIB Vaccines Aged Out No longer eligi ble based on patient's age to complete this topic HPV Vaccines Aged Out No longer eligi ble based on patient's age to complete this topic Hepatitis A Vaccines Aged Out No long er eligible based on patient's age to complete this topic Hepatitis B Vaccines Aged Out No long er eligible based on patient's age to complete this topic IPV Vaccines Aged Out No longer eligi ble based on patient's age to complete this topic MMR Vaccines Aged Out No longer eligi ble based on patient's age to complete this topic Meningococcal ACWY Vaccine Aged Out N o longer eligible based on patient's age to complete this topic Meningococcal B Vaccine Aged Out No l onger eligible based on patient's age to complete this topic RSV Immunization Patients Un andrea 20 months Aged Out No longer eligible b ased on patient's age to complete this topic Varicella Vaccines Aged Out No longer eligible based on patient's age to complete this topic Medical Devices Implanted Type Area Biological Scientist Device Identifier Shelf Expiration Date Model / Serial / Lot Insert Triathlon 10mm 5 Bearing Cndylr Stabilize Tibial - [id number] Implanted:Qty: 1 on 04/22/2020 by Freeman Goddard MD Right: Knee [employer] [id number] 11/25/2022 5531-P-510 / / [id number] Triathlon Tritanium Baseplate Size 5 - [id number] Implanted:Qty: 1 on 04/22/2020 by Freeman Goddard MD Right: Knee [employer] [id number] 12/25/2024 5536-B-500 / / [id number] Component Femoral Cruciate Retaining Beaded Rt Size 5 W\Chrissy - [id number] Implanted:Qty: 1 on 04/22/2020 by Freeman Goddard MD Right: Knee [employer] [id number] 10/01/2024 5517-F-502 / / [id number] Component 9mm 33mm Symmetric Tritanium Ptlar Knee - [id number] Implanted:Qty: 1 on 04/22/2020 by Freeman Goddard MD Right: Knee [employer] [id number] 03/03/2025 5556-L-339 / / [id number] Knee Fem Bsplt W Pa Stry-Howm [id number] Implanted:Qty: 1 on 03/10/2021 by Freeman Goddard MD Left: Knee [employer] [id number] 12/30/2025 5517-F-501 / / [id number] Knee Bsplt Triathlon Ti Sz 5 Stry-Howm [id number] Implanted:Qty: 1 on 03/10/2021 by Freeman Goddard MD Left: Knee [employer] [id number] 12/22/2025 5536-B-500 / / [id number] Knee Insrt Cs Tri Sz5 11mm Stry-Howm [id number] Implanted:Qty: 1 on 03/10/2021 by Freeman Goddard MD Left: Knee [employer] [id number] 04/20/2025 5531-P-511 / / [id number] Knee Pat Trthln Mtl Bck 33x09 Stry-Howm [id number] Implanted:Qty: 1 on 03/10/2021 by Freeman Goddard MD Left: Knee [employer] [id number] 12/24/2025 5556-L-339 / / [id number] Care Teams Food And Beverage Intern Relationship Specialty Start Date End Date Tawanda Oropeza MD [address] [place] [address] PCP - General Internal Medicine 07/03/14
--- OUTSIDE RECORDS SUMMARY | 2024-10-05 15:06 | XMS_ITS | Clinical Summary ---
Author Organization [facility] Address [address] [place] [address] Care Team Providers Care Supervisor Taping Name Role Phone April Bautista MD Unavailable [phone] Francois Harden Primary Care Provider Allergies No known active allergies Medications aspirin enteric coated (ECOTRIN LOW STRENGTH) 81 MG EC tablet Take 1 tablet (81 mg total) by mouth nightly. Active atorvastatin (LIPITOR) 80 MG tablet Take 1 tablet (80 mg total) by mouth every morning. Active fenofibrate (TRIGLIDE) 160 MG tablet Take 1 tablet (160 mg total) by mouth every morning. Active metoPROLOL TARTRATE (LOPRESSOR) 25 MG tablet Take 1 tablet (25 mg total) by mouth 2 (two) times a day. Active ezetimibe (ZeTIA) 10 MG tablet Take 1 tablet (10 mg total) by mouth nightly. 01/04/2024 Active PANTOprazole (PROTONIX) 40 MG EC tablet Take 1 tablet (40 mg total) by mouth every morning before breakfast. Active meloxicam (MOBIC) 15 MG tabletIndication s:Sacroiliac dysfunction,[employer] clarice intractable pain Take 1 tablet (15 mg total) by mouth daily. 30 tablet 05/26/2024 Active Active Problems Problem Noted Date Diagnosed Date Pain of right sacroiliac joint 04/19/2023 History of lumbar fusion 03/21/2023 Work related injury 03/21/2023 Chronic bilateral low back pain with right-sided sciatica 03/21/2023 Arteriosclerosis of coronary artery 03/17/2023 03/17/2023 Atypical angina 03/17/2023 03/17/2023 Hyperlipidemia 03/17/2023 03/17/2023 Osteoarthritis 04/22/2020 03/17/2023 Erectile dysfunction following radical prostatec shiloh 04/29/2017 03/17/2023 Prostate cancer 03/07/2015 03/17/2023 Primary osteoarthritis of right knee 02/19/2015 03/17/2023 Synovial cyst of knee 02/19/2015 03/17/2023 Low back pain 11/04/2013 03/17/2023 Postlaminectomy syndrome, lumbar region 11/05/19 14 03/17/2023 Thoracic or lumbosacral neuritis or radiculitis 11/04/2013 03/17/2023 Resolved Problems Problem Noted Date Diagnosed Date Resolved Date Pneumonia due to COVID-19 virus 03/20/2021 06/09/2023 Encounters Date Type Department Care Team Description 09/19/2024 Scanned Document [facility] PAIN [facility] SCAN Pain Management, Scan from Last 3 Months Social History Tobacco Use Types Packs/Day Years Used Date Smoking Tobacco: Never Smokeless Tobacco: Never Tobacco Cessation:Counseling Given: Not Answered Alcohol Use Standard Drinks/Week Comments Yes 3 (1 standard drink = 0.6 oz pur e alcohol) social. 1xweek. OASIS D0700: Social Isolation Answer Da te Recorded Frequency of experiencing loneliness or isolatio n Never 10/12/2022 OASIS A1250: Transportation Answer Date Recorded Lack of Transportation (Medical) No 10/12/2022 Lack of Transportation (Non-Medical) No 10/12/2022 Patient Unable or Declines to Respond No 10/12/2022 AUDIT-C Answer Date Recorded Q1: How often do you have a drink containing alc ohol? 2-4 times a month 04/14/2024 Q2: How many drinks containi ng alcohol do you have on a typical day when you are drinking? 3 or 4 04/14/2024 Q3: How often do you have si x or more drinks on one occasion? Never 04/14/2024 Sex and Gender Information Value Date Recorded Sex Assigned at Male 02/09/2024 9:52 AM EST Legal Sex Male 6:47 PM EDT Gender Identity Male 05/26/2024 10:39 AM EST Sexual Orientation Heterosexual (straight) 05/26 10:39 AM EST Last Filed Vital Signs Vital Sign Reading Time Taken Comments Blood Pressure 154/77 05/09/2024 9:55 AM EST Pulse 77 05/09/2024 9:55 AM EST Temperature 37.1 C (98.8 F) 04/25/2024 11:55 AM EST Respiratory Rate 14 04/25/2024 1:06 PM EST Oxygen Saturation 99% 05/09/2024 9:55 AM EST Inhaled Oxygen Concentration - - Weight 93 kg (205 lb) 05/09/2024 9:55 AM EST Height 182.9 cm (6') 05/09/2024 9:55 AM EST Body Mass Index 27.8 05/09/2024 9:55 AM EST Plan of Treatment Health Maintenance Due Date Last Done Comments Hepatitis C Virus Screening 1960 COVID-19 Vaccine (#1) 11/05/1964 HIV Screening 11/05/1972 DTaP/Tdap/Td Vaccines (1 - Tdap) 11/05/1978 Pneumococcal Vaccines 50+ (1 of 2 - PCV) 11/05/1978 Zoster (Shingles) Vaccine (1 of 2) 11/05/1978 Colonoscopy 11/05/2004 Influenza Vaccine 10/27/2024 RSV Vaccine 60 years and old er and Patients (1 - 1-dose 75+ series) 11/05/2034 Hepatitis B Vaccines Aged Out No long er eligible based on patient's age to complete this topic Insurance [facility] TRAVELERS TRAVELERS TRAVELERS Advance Directives * Full Code (Latest Code Status on File) Date Activated Date Inactivated Comments 10/12/2022 11:40 AM 04/25/2024 11:45 AM Full Code Care Teams Supervisor Taping Relationship Specialty Start Date End Date Francois Harden [address] [place] [address] [address] [place] [address] PCP - General 04/25/24 April Bautista MD [address] [place] [id number] Surgery, Orthopedic 02/09/24
--- NOTE | 2024-10-05 15:11 | MHC.OFFVIS ---
Vital Signs 10/05/24 15:12 Height 6 ft Weight 227 lb 1.218 oz BMI 30.8 BP 120/70 Blood Pressure Location Lt brachial Position Sitting Pulse 62 Intake Visit Reasons: 1 yr f/up Intake Note: 1 year follow-up with ekg feeling good Allergies No Known Allergies Allergy (Verified 03/23/23 15:18) Medication List - Last Reconciled 10/05/24 by Francois Harden MD aspirin 81 mg PO BEDTIME atorvastatin 80 mg PO DAILY ezetimibe 10 mg PO DAILY fenofibrate 160 mg PO DAILY metoprolol succinate ER 25 mg PO QAM pantoprazole 40 mg PO DAILY sildenafil 100 mg PO DAILY HPI Comments Details: Melanie comes for follow-up. He has been doing very well from cardiac perspective. He denies any more symptoms with exertion on his work site. He has no epigastric discomfort or any gassy feeling. He denies any palpitations, lightheadedness, syncope. No shortness of breath, orthopnea, PND. Takes all his medications currently. Recent lipid panel is not available to me. [facility] Medical History (Updated 10/05/24 @ 17:04 by Francois Harden MD) Atypical angina Abnormal stress ECG with treadmill Surgical History (Updated 10/05/24 @ 17:04 by Francois Harden MD) S/P cardiac catheterization S/P CABG x 3 Hx of knee surgery Family History Father CAD (coronary artery disease) Mother No problems noted. Sister CAD (coronary artery disease) Social History Household Members: Spouse Housing: House Alcohol intake: current Alcohol intake frequency: a few times a week Patient Tobacco Use Status: Never used Tobacco Review of Systems Const Denies chills, Denies fatigue, Denies fever(s), Denies frequent falls, Denies weakness, Denies weight gain and Denies weight loss ENT Denies dizziness Card Denies chest pain, Denies leg edema, Denies lightheadedness, Denies palpitations, Denies dyspnea, Denies dyspnea on exertion, Denies orthopnea and Denies other (loss of consciousness) Resp Denies cough, Denies dyspnea and Denies dyspnea on exertion GI Denies hematochezia and Denies change in stool character Musc Denies abnormal gait, Denies muscle weakness, Denies numbness, Denies radiating pain into limb and Denies tingling Neuro Denies abnormal gait, Denies dizziness, Denies frequent falls, Denies numbness, Denies tingling and Denies weakness Endo Denies fatigue and Denies palpitations Physical Exam Vital Signs: Last Vital Signs Pulse 62 10/05/24 15:12 BP 120/70 10/05/24 15:12 BMI result Body Mass Index 30.8 Const General: cooperative, healthy appearing, comfortable and no acute distress Orientation/consciousness: patient oriented x3 Neck Neck: Yes normal visual inspection Resp Effort & Inspection: normal respiratory effort Auscultation: clear to auscultation bilaterally, no crackles, no rales, no rhonchi and no wheezes Cardio Jugular venous distension: no JVD Rate: regular rate Rhythm: regular rhythm Heart sounds: S1 normal heart sound present, S2 normal heart sound present, no murmurs and no rubs Skin General skin exam: no rashes or lesions noted Neuro General: patient oriented x3 Extrem General: Yes normal to inspection, No no pedal edema and No calf tenderness Psych Appearance: grossly normal Mental Status: mental status grossly normal Speech and movement: Normal speech and movement present Office Procedures EKG Details: EKG shows normal sinus rhythm with incomplete right bundle-branch block otherwise normal EKG [id number], Complete Assessment & Plan Assessment & Plan (1) CAD (coronary artery disease): Code(s): I25.10 - Atherosclerotic heart disease of [place] coronary artery without angina pectoris Category: Medical Qualifiers: Coronary Disease-Associated Artery/Lesion type: [place] artery [place] vs. transplanted heart: [place] heart Associated angina: without angina Qualified Code(s): I25.10 - Atherosclerotic heart disease of [place] coronary artery without angina pectoris Plan: CAD status post three-vessel coronary artery bypass grafting for critical coronary artery disease and atypical symptoms although with exertional. His symptoms have now subsided. He is very functional at his work site. Does not exercise on regular basis. Takes all his medications. Importance of aggressive medical therapy especially aggressive lipid modification was discussed. Role of lipids in atherosclerosis was discussed. Continue current high-intensity statin therapy with ezetimibe therapy with target goal LDL less than 60 mg/dL. Target goal triglycerides less than 150 mg/dL. Continue lifelong aspirin therapy. There was no current indication for metoprolol therapy which will be tapered and discontinued. He is quite happy about it. Advised to call me with any new symptoms. Will follow up in the clinic in 1 year's time, sooner p.r.n.. Thank you for allowing me to partake in his care Coding Level of Care Code Est Pt Level 4 (39651) Complex EM visit Add On G2211 Diagnoses Coronary artery disease involving [place] coronary artery of [place] heart without angina pectoris I25.10 Coronary Disease-Associated Artery/Lesion type: [place] artery [place] vs. transplanted heart: [place] heart Associated angina: without angina CPT Codes EKG - CPT: 89300-[id number], Complete ([id number])
[2024-10-05 15:12] VITALS: BP 120/70; PULSE 62; BMI 30.8
== END 2024-10-05 16:21 | disposition home or self-care (01) ==
LOC: HO.HCS 15:04
PROVIDERS: PCP Internal Medicine; Visit Provider Internal Medicine Cardiovascular Disease
DX: I25.10 Atherosclerotic heart disease of native coronary artery without angina pectoris (principal)
CPT/HCPCS: 93010; 99214

== ENCOUNTER → 2024-10-05 15:04 | Outpatient (BNVA) | payer OTHER, SELFPAY | PROVIDERS: PCP Internal Medicine; Visit Provider Internal Medicine Cardiovascular Disease | DX: I25.10 Atherosclerotic heart disease of native coronary artery without angina pectoris (principal); I45.19 Other right bundle-branch block | CPT/HCPCS: 93005 ==